=== PATIENT | male | born 1960 | race Two or more races ===

== ENCOUNTER 2020-02-02 09:40 | Inpatient (IN) | payer SELFPAY ==
[~2020-02-02] VITALS: Ht 162.6 cm; Wt 88.0 kg
[2020-02-02 10:10] VITALS: BP 142/79
[2020-02-02] MEDS ORDERED: GLIPIZIDE5 MG ORAL (10:27)
[2020-02-02] MEDS ORDERED: METFORMIN HCL850 M1 ORAL (10:27)
[2020-02-02] MEDS ORDERED: LISINOPRIL2.5 MG ORAL (10:27)
[2020-02-02] MEDS ORDERED: ACTOS45 MG ORAL (10:27)
--- NOTE | 2020-02-02 10:39 | Emergency Room Report ---
History of Present Illness General Chief Complaint: Dyspnea/Respdistress Source: Patient Present Illness HPI 59-year-old male presents to ED for evaluation. Coming from home. Noted to be short of breath with cough. O2 sats low in triage. States he has been feeling short of breath for 1 week. Feels better with oxygen. Denies chest pain. Denies fevers or chills. States that he has a Covid test pending yet from yesterday. No other aggravating relieving factors. Denies any other associated symptoms Allergies: Coded Allergies: No Known Allergies (Unverified , 02/02/20) COVID-19 Screening Contact w/high risk pt: No Experienced COVID-19 symptoms?: Yes COVID-19 Testing performed TANK PUMPER: No COVID-19 Screening: PUI COVID-19 COVID-19 Testing Source: CLIENT SERVICE CONSULTANT Patient History Past Medical History: DM Past Surgical History: none Pertinent Family History: none Social History: Denies: smoking, alcohol use, drug use Immunizations: UTD Reviewed Nursing Documentation: PMH: Agreed; PSxH: Agreed Nursing Documentation-PMH Past Medical History: No History, Except For Hx Diabetes: Yes Review of Systems All Other Systems: negative except mentioned in HPI Physical Exam Vital Signs Date Time Temp Pulse Resp B/P (MAP) Pulse Ox O2 Delivery O2 Flow Rate FiO2 02/02/20 09:53 97.9 112 33 135/79 (97) 71 Room Air 02/02/20 10:08 4.0 Sp02 EP Interpretation: reviewed, normal General Appearance: no apparent distress, alert, GCS 15, non-toxic Head: normocephalic, atraumatic Eyes: bilateral eye normal inspection, bilateral eye PERRL ENT: hearing grossly normal, normal pharynx, no angioedema, normal voice Neck: full range of motion, supple/symm/no masses Respiratory: chest non-tender, decreased breath sounds, speaking full sentences Cardiovascular #1: no edema, tachycardia Cardiovascular #2: 2+ carotid (R), 2+ carotid (L), 2+ radial (R), 2+ radial (L), 2+ dorsalis pedis (R), 2+ dorsalis pedis (L) Gastrointestinal: normal bowel sounds, non tender, soft, non-distended, no guarding, no rebound Rectal: deferred Genitourinary: normal inspection, no CVA tenderness Musculoskeletal: back normal, normal range of motion, gait/station normal, non- tender Neurologic: alert, motor strength/tone normal, oriented x3, sensory intact, responsive, speech normal Psychiatric: judgement/insight normal, memory normal, mood/affect normal, no suicidal/homicidal ideation Reflexes: 3+ bicep (R), 3+ bicep (L), 3+ tricep (R), 3+ tricep (L), 3+ knee (R), 3+ knee (L) Skin: other - See nursing notes Lymphatic: no adenopathy Procedures Critical Care Time Critical Care Time i. I feel this is a highly complex case requiring extensive working including EKG/Rhythm strip, Xray/CT/US, Blood/urine lab work, repeat exams while in ED, and administration of strong opiates/narcotics for pain control, admission to hospital or close patient follow up. Total time: 60 min bedside evaluation and treatment excludes procedures (EKG). Reason for critical care: Hypoxia, shortness of breath, Covid Possible complications: hypotension, hypertension, [place], shock, arrhythmias, metabolic acidosis, end organ damage, respiratory failure. Interventions: labs, EKG, chest x-ray, ABG, evaluation by respiratory therapist, Ventimask, Covid test, dexamethasone, Lovenox, antibiotics Course: Patient presenting with shortness of breath. O2 sats low. Chest x-ray shows patchy infiltrates. Concerning for Covid. In isolation. ABG shows mild hypoxia. Started on Ventimask. O2 sats and breathing improved. Given dexamethasone. Given Lovenox. Given broad-spectrum antibiotics Consultations: nursing staff, EMS, family Performed by: Dr Land Tolerated well condition = serious j. because of unstable vital signs this patient had a condition that could potentially threaten life or limb. I feel this is a critical patient who required my full attention while patient was considered critical. Total Critical Care Time excluding procedures was greater than 60 minutes Medical Decision Making Diagnostic Impression: Primary Impression: COVID-19 Additional Impression: Respiratory distress ER Course Hospital Course 59-year-old male presents with shortness of breath. Hypoxia. Concern for Covid. Differential diagnoses include: Pneumonia, CHF exacerbation, pneumothorax, fluid overload Clinical course Patient placed on stretcher. Isolation. I wore full PPE. On plumber cub with hypoxia on room air. After initial history and physical I ordered labs, EKG, chest x-ray, ABG. Patient started on nasal cannula. ABG shows mild hypoxia. No hypercapnia or acidosis. Started on Ventimask. Breathing improved. Chest x-ray shows bilateral patchy infiltrates highly consistent with Covid pneumonia Covid swab sent. Dexamethasone given. Lovenox given. Broad-spectrum antibiotics given. Respiratory status improved. Patient admitted to Dr. Alatorre. I feel this is a highly complex case requiring extensive working including EKG/Rhythm strip, Xray/CT/US, Blood/urine lab work, repeat exams while in ED, and administration of strong opiates/narcotics for pain control, admission to hospital or close patient follow up. Diagnosis -COVID-19, respiratory distress Patient admitted to telemetry in serious condition Laboratory Tests Test 02/02/20 10:28 02/02/20 10:32 02/02/20 10:50 Arterial Blood pH 7.470 (7.350-7.450) Arterial Blood Partial Pressure CO2 31.5 mmHg (35.0-45.0) L Arterial Blood Partial Pressure O2 61.8 mmHg (75.0-100.0) L Arterial Blood HCO3 22.4 mmol/L (22.0-26.0) Arterial Blood Oxygen Saturation 91.7 % (95-100) L Arterial Blood Base Excess -0.3 (-2-2) Oswaldo Test Positive White Blood Count 8.1 K/UL (4.8-10.8) Red Blood Count 4.49 M/UL (4.70-6.10) L Hemoglobin 14.9 G/DL (14.2-18.0) Hematocrit 44.9 % (42.0-52.0) Mean Corpuscular Volume 100 FL (80-99) H Mean Corpuscular Hemoglobin 33.1 PG (27.0-31.0) H Mean Corpuscular Hemoglobin Concent 33.1 G/DL (32.0-36.0) Red Cell Distribution Width 12.5 % (11.6-14.8) Platelet Count 325 K/UL (150-450) Mean Platelet Volume 5.7 FL (6.5-10.1) L Neutrophils (%) (Auto) 73.3 % (45.0-75.0) Lymphocytes (%) (Auto) 18.3 % (20.0-45.0) L Monocytes (%) (Auto) 7.0 % (1.0-10.0) Eosinophils (%) (Auto) 1.0 % (0.0-3.0) Basophils (%) (Auto) 0.4 % (0.0-2.0) Prothrombin Time 11.8 SEC (9.30-11.50) H Prothromb Time International Ratio 1.1 (0.9-1.1) Activated Partial Thromboplast Time 30 SEC (23-33) D-Dimer 0.73 mg/L FEU (0.00-0.49) H Sodium Level 133 MMOL/L (136-145) L Potassium Level 4.2 MMOL/L (3.5-5.1) Chloride Level 99 MMOL/L (98-107) Carbon Dioxide Level 26 MMOL/L (21-32) Anion Gap 8 mmol/L (5-15) Blood Urea Nitrogen 9 mg/dL (7-18) Creatinine 0.9 MG/DL (0.55-1.30) Estimat Glomerular Filtration Rate > 60 mL/min (>60) Glucose Level 212 MG/DL (74-106) H Lactic Acid Level 2.00 mmol/L (0.4-2.0) Calcium Level 8.4 MG/DL (8.5-10.1) L Ferritin 351 NG/ML (8-388) Total Bilirubin 0.6 MG/DL (0.2-1.0) Aspartate Amino Transf (AST/SGOT) 62 U/L (15-37) H Alanine Aminotransferase (ALT/SGPT) 56 U/L (12-78) Alkaline Phosphatase 42 U/L (46-116) L Lactate Dehydrogenase 559 U/L (81-234) H Troponin I 0.000 ng/mL (0.000-0.056) C-Reactive Protein, Quantitative 16.4 mg/dL (0.00-0.90) H Pro-B-Type Natriuretic Peptide 43 pg/mL (0-125) Total Protein 7.2 G/DL (6.4-8.2) Albumin 2.5 G/DL (3.4-5.0) L Globulin 4.7 g/dL Albumin/Globulin Ratio 0.5 (1.0-2.7) L Lipase 126 U/L (73-393) Urine Color Yellow Urine Appearance Clear Urine pH 7 (4.5-8.0) Urine Specific [place] 1.010 (1.005-1.035) Urine Protein 3+ (NEGATIVE) H Urine Glucose (UA) 4+ (NEGATIVE) H Urine Ketones 4+ (NEGATIVE) H Urine Blood 3+ (NEGATIVE) H Urine Nitrite Negative (NEGATIVE) Urine Bilirubin Negative (NEGATIVE) Urine Urobilinogen 8 MG/DL (0.0-1.0) H Urine Leukocyte Esterase Negative (NEGATIVE) Urine RBC 2-4 /HPF (0 - 0) H Urine WBC 0-2 /HPF (0 - 0) Urine Squamous Epithelial Cells Occasional /LPF Urine Bacteria Occasional /HPF (NONE) Urine Mucus Few /LPF (NONE/OCC) H EKG Diagnostic Results Troponin ordered: Yes Rate: tachycardiac Rhythm: NSR ST Segments: no acute changes ASA given to the pt in ED: No Rhythm Strip Diag. Results EP Interpretation: yes Rhythm: NSR, no PVC's, no ectopy Chest X-Ray Diagnostic Results Chest X-Ray Diagnostic Results : Chest X-Ray Ordered: Yes # of Views/Limited/Complete: 1 View Indication: Shortness of Breath EP Interpretation: Yes Interpretation: no pneumothorax, other - patchy bilateral infiltrates Impression: Other - Covid pneumonia Electronically Signed by: Electronically signed by Francesco Land MD Last Vital Signs Date Time Temp Pulse Resp B/P (MAP) Pulse Ox O2 Delivery O2 Flow Rate FiO2 02/02/20 10:10 114 29 142/79 95 Nasal Cannula 4.0 02/02/20 09:53 97.9 Status: improved Disposition: ADMITTED INPATIENT Condition: Serious Referrals: NOT CHOSEN IPA/,REFERRING (PCP) Francesco Land MD Feb 02, 2020 10:39
[2020-02-02 11:14] LABS: BASOPHILS % (AUTO) 0.4 % (0.0-2.0); HEMATOCRIT 44.9 % (42.0-52.0); HEMOGLOBIN 14.9 G/DL (14.2-18.0); LYMPHOCYTES % (AUTO) 18.3 % (20.0-45.0); MEAN CORPUSCULAR VOLUME 100 FL (80-99); NEUTROPHILS % (AUTO) 73.3 % (45.0-75.0); PLATELET COUNT 325 K/UL (150-450); RED BLOOD COUNT 4.49 M/UL (4.70-6.10); RED CELL DISTRIBUTION WIDTH 12.5 % (11.6-14.8); WHITE BLOOD COUNT 8.1 K/UL (4.8-10.8)
[2020-02-02 11:19] LABS: ANION GAP 8 mmol/L (5-15); BLOOD UREA NITROGEN 9 mg/dL (7-18); CALCIUM 8.4 MG/DL (8.5-10.1); CARBON DIOXIDE 26 MMOL/L (21-32); CHLORIDE 99 MMOL/L (98-107); CREATININE 0.9 MG/DL (0.55-1.30); POTASSIUM 4.2 MMOL/L (3.5-5.1); SODIUM 133 MMOL/L (136-145)
[2020-02-02 11:21] LABS: INR 1.1 (0.9-1.1)
[2020-02-02 11:29] LABS: APPEARANCE,URINE CLEAR; BILIRUBIN, URINE NEGATIVE (NEGATIVE); GLUCOSE, URINE (UA) 4+ (NEGATIVE); KETONES,URINE 4+ (NEGATIVE); LEUKOCYTE ESTERASE ,URINE NEGATIVE (NEGATIVE); NITRITE,URINE NEGATIVE (NEGATIVE); PH,URINE 7 (4.5-8.0); PROTEIN,URINE 3+ (NEGATIVE); UROBILINOGEN,URINE 8 MG/DL (0.0-1.0)
[2020-02-02 11:38] LABS: ALANINE AMINOTRANSFERASE 56 U/L (12-78); ALBUMIN 2.5 G/DL (3.4-5.0); ALBUMIN/GLOBULIN RATIO 0.5 (1.0-2.7); ALKALINE PHOSPHATASE 42 U/L (46-116); ASPARTATE AMINO TRANSFERASE 62 U/L (15-37); BILIRUBIN,TOTAL 0.6 MG/DL (0.2-1.0); FERRITIN 351 NG/ML (8-388); LACTATE DEHYDROGENASE 559 U/L (81-234)
[2020-02-02 11:41] LABS: COLOR,URINE YELLOW
[2020-02-02] MEDS ORDERED: Azithromycin 500 MG in NS 275 ML IV ONE (12:00)
[2020-02-02] MEDS ORDERED: dexAMETHasone 10mg/ml Inj IV ONE (12:00)
[2020-02-02] MEDS ORDERED: Enoxaparin 40mg Inj SUBQ ONE (12:00)
[2020-02-02] MEDS ORDERED: cefTRIAXone 1 GM in NS 55 ML IVPB ONE (12:00)
[2020-02-02 13:05] VITALS: BP 113/68
[2020-02-02 15:17] VITALS: BP 115/67
[2020-02-02] MEDS ORDERED: Miralax 17gm pkt ORAL PRN (15:30)
[2020-02-02] MEDS ORDERED: Morphine Sulfate 4mg/ml Inj (IV USE ONLY) IVP PRN (15:30)
[2020-02-02 16:00] VITALS: BP 142/76
--- NOTE | 2020-02-02 16:36 | Diagnostic Imaging Report ---
Indication: Shortness of breath Technique: One view of the chest Comparison: none Findings: There are bilateral mid and lower lung interstitial and airspace opacities in a peribronchovascular distribution. The heart is enlarged. The pleural spaces are grossly clear Impression: Bilateral mid and lower lung opacities. This is suspicious for bilateral pneumonia, possibly viral. Given the presence of cardiomegaly, findings could also represent pulmonary edema
--- NOTE | 2020-02-02 17:30 | History and Physical ---
History of Present Illness General Date patient seen: Feb 02, 2020 Time patient seen: 13:20 Reason for Hospitalization: Dyspnea/Respdistress Present Illness HPI 59 y/o M Pt brought in by family from home c/o SOB x4 days but today it got worse. Pt also c/o un productive cough x1 week. Denies fever/ chills. Pt is tachypneic and satting 71% RA upon arrival, placed on 4L nc, O2 improved to 95% per ER report. The Pt has a pending Covid result that was done at his PCP office yesterday due to intermittent cough. AAOx4, placed on Covid isolation precaution and CXR noted to have bilateral pneumonia. Antibiotics were started, dexamethasone 10 mg x1 , enoxaparin was given in the ER and admission is requested. Allergies: Coded Allergies: No Known Allergies (Unverified , 02/02/20) COVID-19 Screening Contact w/high risk pt: No Experienced COVID-19 symptoms?: Yes Coronavirus symptoms experienc: Fatigue, Shortness of Breath, Cough Medication History Scheduled Glipizide* (Glipizide*), 10 MG ORAL BIDAC, (Reported) Lisinopril* (Lisinopril*), 5 MG ORAL DAILY, (Reported) Metformin Hcl* (Metformin Hcl*), 850 MG ORAL TID, (Reported) Pioglitazone Hcl* (Actos*), 45 MG ORAL DAILY, (Reported) Patient History Healthcare decision maker Resuscitation status Advanced Directive on File Review of Systems All Other Systems: negative except mentioned in HPI Physical Exam General Appearance: WD/WN Lines, tubes and drains: peripheral HEENT: normocephalic Neck: non-tender Respiratory/Chest: decreased breath sounds Cardiovascular/Chest: normal rate Abdomen: non tender 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 Last 24 Hour Vital Signs Date Time Temp Pulse Resp B/P (MAP) Pulse Ox O2 Delivery O2 Flow Rate FiO2 02/02/20 16:00 102 02/02/20 16:00 97.9 105 25 142/76 (98) 94 02/02/20 15:53 Venturi Mask 15.0 02/02/20 15:30 97.9 99 33 115/67 97 Venturi Mask 4.0 55 02/02/20 15:17 97.9 99 33 115/67 97 Venturi Mask 4.0 55 02/02/20 13:05 97.9 101 28 113/68 99 Venturi Mask 55 02/02/20 10:10 114 29 142/79 95 Nasal Cannula 4.0 02/02/20 10:08 112 33 Nasal Cannula 4.0 02/02/20 09:53 97.9 112 33 135/79 (97) 71 Room Air Laboratory Tests Test 02/02/20 10:28 02/02/20 10:32 02/02/20 10:50 Arterial Blood pH 7.470 (7.350-7.450) Arterial Blood Partial Pressure CO2 31.5 mmHg (35.0-45.0) L Arterial Blood Partial Pressure O2 61.8 mmHg (75.0-100.0) L Arterial Blood HCO3 22.4 mmol/L (22.0-26.0) Arterial Blood Oxygen Saturation 91.7 % (95-100) L Arterial Blood Base Excess -0.3 (-2-2) Oswaldo Test Positive White Blood Count 8.1 K/UL (4.8-10.8) Red Blood Count 4.49 M/UL (4.70-6.10) L Hemoglobin 14.9 G/DL (14.2-18.0) Hematocrit 44.9 % (42.0-52.0) Mean Corpuscular Volume 100 FL (80-99) H Mean Corpuscular Hemoglobin 33.1 PG (27.0-31.0) H Mean Corpuscular Hemoglobin Concent 33.1 G/DL (32.0-36.0) Red Cell Distribution Width 12.5 % (11.6-14.8) Platelet Count 325 K/UL (150-450) Mean Platelet Volume 5.7 FL (6.5-10.1) L Neutrophils (%) (Auto) 73.3 % (45.0-75.0) Lymphocytes (%) (Auto) 18.3 % (20.0-45.0) L Monocytes (%) (Auto) 7.0 % (1.0-10.0) Eosinophils (%) (Auto) 1.0 % (0.0-3.0) Basophils (%) (Auto) 0.4 % (0.0-2.0) Prothrombin Time 11.8 SEC (9.30-11.50) H Prothromb Time International Ratio 1.1 (0.9-1.1) Activated Partial Thromboplast Time 30 SEC (23-33) D-Dimer 0.73 mg/L FEU (0.00-0.49) H Sodium Level 133 MMOL/L (136-145) L Potassium Level 4.2 MMOL/L (3.5-5.1) Chloride Level 99 MMOL/L (98-107) Carbon Dioxide Level 26 MMOL/L (21-32) Anion Gap 8 mmol/L (5-15) Blood Urea Nitrogen 9 mg/dL (7-18) Creatinine 0.9 MG/DL (0.55-1.30) Estimat Glomerular Filtration Rate > 60 mL/min (>60) Glucose Level 212 MG/DL (74-106) H Lactic Acid Level 2.00 mmol/L (0.4-2.0) Calcium Level 8.4 MG/DL (8.5-10.1) L Ferritin 351 NG/ML (8-388) Total Bilirubin 0.6 MG/DL (0.2-1.0) Aspartate Amino Transf (AST/SGOT) 62 U/L (15-37) H Alanine Aminotransferase (ALT/SGPT) 56 U/L (12-78) Alkaline Phosphatase 42 U/L (46-116) L Lactate Dehydrogenase 559 U/L (81-234) H Troponin I 0.000 ng/mL (0.000-0.056) C-Reactive Protein, Quantitative 16.4 mg/dL (0.00-0.90) H Pro-B-Type Natriuretic Peptide 43 pg/mL (0-125) Total Protein 7.2 G/DL (6.4-8.2) Albumin 2.5 G/DL (3.4-5.0) L Globulin 4.7 g/dL Albumin/Globulin Ratio 0.5 (1.0-2.7) L Lipase 126 U/L (73-393) Urine Color Yellow Urine Appearance Clear Urine pH 7 (4.5-8.0) Urine Specific [place] 1.010 (1.005-1.035) Urine Protein 3+ (NEGATIVE) H Urine Glucose (UA) 4+ (NEGATIVE) H Urine Ketones 4+ (NEGATIVE) H Urine Blood 3+ (NEGATIVE) H Urine Nitrite Negative (NEGATIVE) Urine Bilirubin Negative (NEGATIVE) Urine Urobilinogen 8 MG/DL (0.0-1.0) H Urine Leukocyte Esterase Negative (NEGATIVE) Urine RBC 2-4 /HPF (0 - 0) H Urine WBC 0-2 /HPF (0 - 0) Urine Squamous Epithelial Cells Occasional /LPF Urine Bacteria Occasional /HPF (NONE) Urine Mucus Few /LPF (NONE/OCC) H Height (Feet): 5 Height (Inches): 4.00 Weight (Pounds): 220 Medications Current Medications Medications (Trade) Dose Ordered Sig/Wisam Route PRN Reason Start Time Stop Time Status Last Admin Dose Admin Acetaminophen (Tylenol) 650 mg Q4H PRN ORAL Mild Pain (Pain Scale 1-3) 02/02/20 15:30 03/03/20 15:29 Acetaminophen (Tylenol) 650 mg Q4H PRN ORAL Temp >100.5 02/02/20 15:30 03/03/20 15:29 Azithromycin 250 mg/Dextrose 275 ml @ 275 mls/hr Q24HRS IV 02/03/20 12:00 02/08/20 11:59 Ceftriaxone Sodium 1 gm/ Dextrose 55 ml @ 110 mls/hr Q24H IVPB 02/03/20 13:00 02/10/20 12:59 Dexamethasone Sodium Phosphate (Decadron 10mg/ ml Inj) 6 mg DAILY IV 02/03/20 09:00 02/11/20 12:00 Dextrose (Dextrose 50%) 25 ml Q30M PRN IV Hypoglycemia 02/02/20 15:30 05/02/20 15:29 Dextrose (Dextrose 50%) 50 ml Q30M PRN IV Hypoglycemia 02/02/20 15:30 05/02/20 15:29 Diphenhydramine HCl (Benadryl) 25 mg Q6H PRN ORAL Itching/Pruritis 02/02/20 15:30 03/03/20 15:29 Docusate Sodium (Colace) 100 mg EVERY 12 HOURS ORAL 02/02/20 21:00 03/03/20 20:59 Enoxaparin Sodium (Lovenox) 40 mg Q24H SUBQ 02/03/20 09:00 05/03/20 08:59 Glipizide (Glucotrol) 10 mg ACBREAKFAST ORAL 02/03/20 06:30 03/04/20 06:29 Hydromorphone HCl (Dilaudid) 2 mg Q3H PRN IVP Severe Pain (Pain Scale 7-10) 02/02/20 15:30 02/09/20 15:29 Lisinopril (ZestriL) 5 mg DAILY ORAL 02/03/20 09:00 03/04/20 08:59 Morphine Sulfate (Morphine Sulfate) 4 mg Q3H PRN IVP Moderate Pain (Pain Scale 4-6) 02/02/20 15:30 02/09/20 15:29 Ondansetron HCl (Zofran) 4 mg Q6H PRN IVP Nausea & Vomiting 02/02/20 15:30 03/03/20 15:29 Pantoprazole (Protonix) 40 mg DAILY ORAL 02/03/20 09:00 03/04/20 08:59 Polyethylene Glycol (Miralax) 17 gm HSPRN PRN ORAL Constipation 02/02/20 15:30 03/03/20 15:29 Sodium Chloride 1,000 ml @ 75 mls/hr DAILY IV 02/02/20 16:00 03/03/20 15:59 02/02/20 16:00 Temazepam (Restoril) 15 mg HSPRN PRN ORAL Insomnia 02/02/20 15:30 02/09/20 15:29 Objective Narrative CXR with bilateral infiltrates Assessment/Plan Status: unchanged Assessment/Plan: 59 y.o admitted to the Hospital with # Hypoxemic respiratory failure ddx include pneumonia due to Sars-Co 2 ( covid 19 ) vs bacterial vs other High suspicion due to clinical presentation, hypoxia, improved with Oxygen support High Flow therapy at this time Empiric CTX, Azythromycin, Dexamethasone started in the ER Continue current therapy and dexamethasone at 6 mg daily ( 10 day course ) ID consulted, Dr. Steve Pulmonary consulted Dr. Gorman RT support Contact - droplet isolation # T2DM Resume home medication except Metformin which will be held for now Monitor BG and MANDIE # DVT ppx with LMWH # GI ppx with PPI FULL CODE Gonsalo Alatorre MD Feb 02, 2020 17:30
[2020-02-02 20:00] VITALS: BP 132/72
[2020-02-02] MEDS: Docusate 100mg cap ORAL SCH (21:20)
[2020-02-03] VITALS (14 sets, daily range): BP systolic 108–152; BP diastolic 54–86
[2020-02-03] MEDS: GlipiZIDE 5mg tab ORAL SCH (05:48)
[2020-02-03 07:04] LABS: ALANINE AMINOTRANSFERASE 46 U/L (12-78); ALBUMIN 2.2 G/DL (3.4-5.0); ALBUMIN/GLOBULIN RATIO 0.5 (1.0-2.7); ALKALINE PHOSPHATASE 39 U/L (46-116); ANION GAP 8 mmol/L (5-15); ASPARTATE AMINO TRANSFERASE 41 U/L (15-37); BILIRUBIN,TOTAL 0.5 MG/DL (0.2-1.0); BLOOD UREA NITROGEN 11 mg/dL (7-18); CALCIUM 8.3 MG/DL (8.5-10.1); CARBON DIOXIDE 23 MMOL/L (21-32); CHLORIDE 103 MMOL/L (98-107); CREATININE 0.9 MG/DL (0.55-1.30); POTASSIUM 4.4 MMOL/L (3.5-5.1); SODIUM 134 MMOL/L (136-145)
[2020-02-03 07:15] LABS: BASOPHILS % (AUTO) 0.2 % (0.0-2.0); HEMATOCRIT 38.8 % (42.0-52.0); HEMOGLOBIN 13.8 G/DL (14.2-18.0); MEAN CORPUSCULAR VOLUME 94 FL (80-99); MONOCYTES % (AUTO) 8.1 % (1.0-10.0); NEUTROPHILS % (AUTO) 76.6 % (45.0-75.0); PLATELET COUNT 404 K/UL (150-450); RED BLOOD COUNT 4.13 M/UL (4.70-6.10); WHITE BLOOD COUNT 8.7 K/UL (4.8-10.8)
--- NOTE | 2020-02-03 08:45 | Consultation ---
DATE OF CONSULTATION: 02/03/2020 PULMONARY CONSULTATION CONSULTING PHYSICIAN: Charles Gorman MD HISTORY OF PRESENT ILLNESS: This is a 59-year-old male who was brought in from home with shortness of breath. He reported chest congestion and cough for about a week. He was markedly hypoxic on arrival to the emergency room. He underwent rapid COVID testing yesterday, which was positive for COVID-19. Patient received Lovenox and Decadron. Currently, he is saturating 94% on 15 liters of oxygen. PAST MEDICAL HISTORY: Notable for diabetes mellitus and hypertension. HOME MEDICATIONS: Lisinopril, metformin, Actos, and glipizide. ALLERGIES: None reported. CODE STATUS: Full. SOCIAL HISTORY: No history of alcohol or tobacco usage. REVIEW OF SYSTEMS: Denies any headaches, hematemesis, melena, hematochezia, night sweats, or weight loss. PHYSICAL EXAMINATION: GENERAL: Reveals a 59-year-old male. HEENT: Unremarkable. LUNGS: Clear breath sounds bilaterally. ABDOMEN: Soft. EXTREMITIES: There is no edema. NEUROLOGIC: Nonfocal. VITAL SIGNS: Blood pressure is 140/80, heart rate 74, respirations 18, O2 saturation 93% on 15 liters Ventimask. LABORATORY DATA: Lab testing shows normal CBC. BMP notable for glucose 217, sodium 134. AST 41. ABG 7.47, pCO2 31, pO2 61. Coags normal. D-dimer is 0.73. IMAGING STUDIES: Discussed above. X-ray of the chest shows bilateral patchy infiltrates. IMPRESSION: 1. COVID-19 pneumonia. 2. Hypertension. 3. Diabetes mellitus. DISCUSSION: Admit to the hospital. Provide supplemental oxygen. Agree with Lovenox and Decadron. We will defer the use of remdesivir to ID specialist. We will follow carefully. Thank you for the consultation. Charles Gorman M.D. DR: MARI JOB#: [id number] CC:
[2020-02-03] MEDS: Lisinopril 2.5mg tab ORAL SCH (09:25)
[2020-02-03] MEDS: dexAMETHasone 10mg/ml Inj IV SCH (09:25)
[2020-02-03] MEDS: Enoxaparin 40mg Inj SUBQ SCH (09:26)
[2020-02-03] MEDS: Docusate 100mg cap ORAL SCH ×2 (09:26→21:00)
[2020-02-03] MEDS ORDERED: Loading Dose:Remdesivir 200mg/NS 210ml IV SCH ×4 (12:00→14:00)
--- NOTE | 2020-02-03 12:06 | General Progress Note ---
Subjective Date patient seen: Feb 03, 2020 Time patient seen: 09:00 ROS Limited/Unobtainable: No Allergies: Coded Allergies: No Known Allergies (Unverified , 02/02/20) All Systems: reviewed and negative except above Subjective Patient is comfortable and reports shortness of breath. Denies chest pain. No fever noted. Objective Last 24 Hour Vital Signs Date Time Temp Pulse Resp B/P (MAP) Pulse Ox O2 Delivery O2 Flow Rate FiO2 02/03/20 09:25 148/84 02/03/20 04:00 76 02/03/20 04:00 98.6 88 18 148/84 (105) 93 02/03/20 00:00 88 02/03/20 00:00 98.9 88 18 136/70 (92) 94 02/02/20 21:00 Venturi Mask 15.0 02/02/20 20:00 98.6 100 18 132/72 (92) 94 02/02/20 20:00 99 02/02/20 16:00 102 02/02/20 16:00 97.9 105 25 142/76 (98) 94 02/02/20 15:53 Venturi Mask 15.0 02/02/20 15:30 97.9 99 33 115/67 97 Venturi Mask 4.0 55 02/02/20 15:17 97.9 99 33 115/67 97 Venturi Mask 4.0 55 02/02/20 13:05 97.9 101 28 113/68 99 Venturi Mask 55 Intake and Output 02/02/20 02/03/20 19:00 07:00 Intake Total 340 ml 200 ml Output Total 750 ml Balance 340 ml -550 ml Intake Oral 340 ml 200 ml Output Urine Total 750 ml # Voids 2 Laboratory Tests 02/03/20 03:30: White Blood Count 8.7, Red Blood Count 4.13L, Hemoglobin 13.8L, Hematocrit 38.8L , Mean Corpuscular Volume 94, Mean Corpuscular Hemoglobin 33.3H, Mean Corpuscular Hemoglobin Concent 35.5, Red Cell Distribution Width 13.0, Platelet Count 404, Mean Platelet Volume 5.2L, Neutrophils (%) (Auto) 76.6H, Lymphocytes (%) (Auto) 15.0L, Monocytes (%) (Auto) 8.1, Eosinophils (%) (Auto) 0.0, Basophils (%) (Auto) 0.2, Sodium Level 134L, Potassium Level 4.4, Chloride Level 103, Carbon Dioxide Level 23, Anion Gap 8, Blood Urea Nitrogen 11, Creatinine 0.9, Estimat Glomerular Filtration Rate > 60, Glucose Level 217H, Hemoglobin A1c 6.8H, Calcium Level 8.3L, Magnesium Level 2.1, Total Bilirubin 0.5, Aspartate Amino Transf (AST/SGOT) 41H, Alanine Aminotransferase (ALT/SGPT) 46, Alkaline Phosphatase 39L, Total Protein 6.8, Albumin 2.2L, Globulin 4.6, Albumin/Globulin Ratio 0.5L Height (Feet): 5 Height (Inches): 4.00 Weight (Pounds): 220 General Appearance: WD/WN EENT: PERRL/EOMI Neck: non-tender Cardiovascular: normal rate, tachycardia Respiratory/Chest: decreased breath sounds Extremities: normal range of motion 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 monitor hypoxia, improved with Oxygen support High Flow therapy at this time - Venturi [address]iric CTX, Azythromycin, Dexamethasone started in the ER Continue current therapy and dexamethasone at 6 mg daily ( 10 day course ) ID consulted, Dr. Steve who kindly ordered the use of Remdisivir which is indicated based on risk factors and hypoxia. Pulmonary consulted kat [place]. RT support Contact - droplet isolation # T2DM Resume home medication except Metformin which will be held for now Monitor BG and MANDIE # DVT ppx with LMWH # GI ppx with PPI FULL CODE Gonsalo Alatorre MD Feb 03, 2020 12:06
[2020-02-03] MEDS: Azithromycin 250 MG in D5W 275 ML IV SCH (12:12)
[2020-02-03] MEDS: cefTRIAXone 1gm/D5W 55ml IVPB SCH ×2 (12:13)
--- NOTE | 2020-02-03 20:32 | Diagnostic Imaging Report ---
EXAM: CT Head Without Intravenous Contrast CLINICAL HISTORY: FALL TECHNIQUE: Axial computed tomography images of the head/brain without intravenous contrast. CTDI is 53.4 mGy and DLP is 1098.9 mGy-cm. One or more of the following dose reduction techniques were used: automated exposure control, adjustment of the mA and/or kV according to patient size, use of iterative reconstruction technique. COMPARISON: No relevant prior studies available. FINDINGS: Brain: No hemorrhage or mass effect. Ventricles: No hydrocephalus. Bones/joints: Unremarkable. Soft tissues: Unremarkable. Sinuses: Unremarkable. Mastoid air cells: Clear. IMPRESSION: No acute hemorrhage, hydrocephalus, or mass effect.
[2020-02-04] VITALS: BP 152/94
[2020-02-04 04:00] VITALS: BP 148/80
[2020-02-04 05:28] LABS: HEMATOCRIT 37.7 % (42.0-52.0); HEMOGLOBIN 13.9 G/DL (14.2-18.0); MEAN CORPUSCULAR VOLUME 92 FL (80-99); PLATELET COUNT 446 K/UL (150-450); RED BLOOD COUNT 4.08 M/UL (4.70-6.10); RED CELL DISTRIBUTION WIDTH 12.6 % (11.6-14.8); WHITE BLOOD COUNT 18.7 K/UL (4.8-10.8)
[2020-02-04] MEDS: GlipiZIDE 5mg tab ORAL SCH (05:39)
[2020-02-04 05:44] LABS: ALANINE AMINOTRANSFERASE 40 U/L (12-78); ALBUMIN 2.5 G/DL (3.4-5.0); ALBUMIN/GLOBULIN RATIO 0.6 (1.0-2.7); ALKALINE PHOSPHATASE 43 U/L (46-116); ANION GAP 11 mmol/L (5-15); ASPARTATE AMINO TRANSFERASE 39 U/L (15-37); BILIRUBIN,TOTAL 0.4 MG/DL (0.2-1.0); BLOOD UREA NITROGEN 11 mg/dL (7-18); CALCIUM 8.7 MG/DL (8.5-10.1); CARBON DIOXIDE 24 MMOL/L (21-32); CHLORIDE 103 MMOL/L (98-107); CREATININE 0.9 MG/DL (0.55-1.30); POTASSIUM 3.9 MMOL/L (3.5-5.1); SODIUM 138 MMOL/L (136-145)
[2020-02-04 08:00] VITALS: BP 148/80
[2020-02-04] MEDS: dexAMETHasone 10mg/ml Inj IV SCH (09:01)
[2020-02-04] MEDS: Lisinopril 2.5mg tab ORAL SCH (09:01)
[2020-02-04] MEDS: Docusate 100mg cap ORAL SCH (09:01)
[2020-02-04] MEDS: Enoxaparin 40mg Inj SUBQ SCH (09:02)
[2020-02-04] MEDS ORDERED: D5 1/2NS 1,000 ML IV SCH (11:45)
[2020-02-04] MEDS ORDERED: Omnipaque 350 100ml vial INJ PRN ×2 (11:45)
--- NOTE | 2020-02-04 11:46 | General Progress Note ---
Subjective Date patient seen: Feb 04, 2020 Time patient seen: 11:15 ROS Limited/Unobtainable: Yes Respiratory: Reports: shortness of breath Neurologic/Psychiatric: Reports: weakness, other - hemiplegia in the L UE and L LE noted Endocrine: Reports: no symptoms Hematologic/Lymphatic: Reports: no symptoms Allergies: Coded Allergies: No Known Allergies (Unverified , 02/02/20) All Systems: reviewed and negative except above Subjective Patient is anxious and reports shortness of breath is stable. Today he was noted NOT TO BE ABLE TO MOVE his LUE and LLE. Initially this happened at 1900 01/[address] head was done with NEGATIVE findings for stroke or hemorrage. He was then noted to be able to move his L side extremities until this morning 9:30 AM when he also was noted not to be able to swallow correctly. Denies chest pain. No fever noted. Objective Last 24 Hour Vital Signs Date Time Temp Pulse Resp B/P (MAP) Pulse Ox O2 Delivery O2 Flow Rate FiO2 02/04/20 09:01 148/80 02/04/20 08:00 95 02/04/20 08:00 97.7 98 22 148/80 (102) 96 02/04/20 07:38 Non-Rebreather 10.0 02/04/20 04:00 98 02/04/20 04:00 97.7 98 22 148/80 (102) 96 02/04/20 00:00 97.7 109 22 152/94 (113) 94 02/04/20 00:00 95 02/03/20 23:11 110 20 92 02/03/20 23:09 110 20 92 02/03/20 22:11 98.5 94 02/03/20 21:11 98.2 94 02/03/20 21:00 Non-Rebreather 10.0 02/03/20 20:41 97.9 92 02/03/20 20:11 98.1 96 02/03/20 20:00 109 02/03/20 20:00 97.5 102 22 108/54 (72) 97 02/03/20 19:45 97.8 97 02/03/20 19:30 Venturi Mask 15.0 02/03/20 19:30 97.9 94 02/03/20 16:00 98.0 103 20 141/76 (97) 94 02/03/20 16:00 90 02/03/20 12:00 87 02/03/20 12:00 98.4 84 18 135/71 (92) 94 Intake and Output0 02/03/20 02/04/20 18:59 06:59 Intake Total 360 ml Output Total 400 ml Balance -40 ml Intake Oral 360 ml Output Urine Total 400 ml # Voids 2 Laboratory Tests 02/04/20 04:00: White Blood Count 18.7#H, Red Blood Count 4.08L, Hemoglobin 13.9L, Hematocrit 37.7L, Mean Corpuscular Volume 92, Mean Corpuscular Hemoglobin 34.0H, Mean Corpuscular Hemoglobin Concent 36.7H, Red Cell Distribution Width 12.6, Platelet Count 446, Mean Platelet Volume 5.0L, Neutrophils (%) (Auto) , Lymphocytes (%) (Auto) , Monocytes (%) (Auto) , Eosinophils (%) (Auto) , Basophils (%) (Auto) , Differential Total Cells Counted 100, Neutrophils % (Manual) 80H, Lymphocytes % (Manual) 12L, Monocytes % (Manual) 8, Eosinophils % (Manual) 0, Basophils % (Manual) 0, Band Neutrophils 0, Platelet Estimate IncreasedH, Platelet Morphology Normal, Red Blood Cell Morphology Normal, Sodium Level 138, Potassium Level 3.9, Chloride Level 103, Carbon Dioxide Level 24, Anion Gap 11, Blood Urea Nitrogen 11, Creatinine 0.9, Estimat Glomerular Filtration Rate > 60, Glucose Level 195H, Calcium Level 8.7, Total Bilirubin 0.4, Direct Bilirubin 0.2, Aspartate Amino Transf (AST/SGOT) 39H, Alanine Aminotransferase (ALT/SGPT) 40, Alkaline Phosphatase 43L, Total Protein 7.0, Albumin 2.5L, Globulin 4.5, Albumin/Globulin Ratio 0.6L Height (Feet): 5 Height (Inches): 4.00 Weight (Pounds): 220 General Appearance: moderate distress EENT: PERRL/EOMI Neck: non-tender Cardiovascular: normal rate Respiratory/Chest: decreased breath sounds Extremities: normal inspection Neurologic: alert, oriented x 3, normal mood/affect, motor weakness, other - LUE and LLE without movement during my exam 0/5 Objective Co- Sars 2 POSITIVE Assessment/Plan Status: unchanged Assessment/Plan: 59 y.o admitted to the Hospital with # Hypoxemic respiratory failure due to pneumonia due to Sars-Co 2 ( covid 19 ) based on positive test. monitor hypoxia, improved with Oxygen support High Flow therapy at this time - Venturi [address] Empiric CTX, Azythromycin, Dexamethasone started in the ER Continue current therapy and dexamethasone at 6 mg daily ( 10 day course ) ID consulted, Dr. Steve who kindly ordered the use of Remdisivir which is indicated based on risk factors and hypoxia. Dr. Alfred from ID will follow up today and case discussed with him. Pulmonary consulted Dr. Gorman, kat. RT support Contact - droplet isolation # NEW Left UE and LE hemiplegia noted this morning. Consulted Dr. Perez and MRI brain is scheduled for last case of the day due to Covid positive status STAT CTA head and neck ordered to rule out large vessel occlusion. If positive the patient will need higher level of care for possible thrombectomy rescue. MARCO A Villeda updated. # Dysphagia Place NPO and ST evaluation ordered # T2DM HOLD ORAL medications and use MANDIE for now Monitor BG and MANDIE # DVT ppx with LMWH # GI ppx with PPI FULL CODE Gonsalo Alatorre MD Feb 04, 2020 11:46
[2020-02-04 12:00] VITALS: BP 118/56
[2020-02-04] MEDS: Azithromycin 250 MG in D5W 275 ML IV SCH (12:00)
--- NOTE | 2020-02-04 12:08 | Infectious Diseases Prog Note ---
Subjective Allergies: Coded Allergies: No Known Allergies (Unverified , 02/02/20) # [id number] Objective Last 24 Hour Vital Signs Date Time Temp Pulse Resp B/P (MAP) Pulse Ox O2 Delivery O2 Flow Rate FiO2 02/04/20 09:01 148/80 02/04/20 08:00 95 02/04/20 08:00 97.7 98 22 148/80 (102) 96 02/04/20 07:38 Non-Rebreather 10.0 02/04/20 04:00 98 02/04/20 04:00 97.7 98 22 148/80 (102) 96 02/04/20 00:00 97.7 109 22 152/94 (113) 94 02/04/20 00:00 95 02/03/20 23:11 110 20 92 02/03/20 23:09 110 20 92 02/03/20 22:11 98.5 94 02/03/20 21:11 98.2 94 02/03/20 21:00 Non-Rebreather 10.0 02/03/20 20:41 97.9 92 02/03/20 20:11 98.1 96 02/03/20 20:00 109 02/03/20 20:00 97.5 102 22 108/54 (72) 97 02/03/20 19:45 97.8 97 02/03/20 19:30 Venturi Mask 15.0 02/03/20 19:30 97.9 94 02/03/20 16:00 98.0 103 20 141/76 (97) 94 02/03/20 16:00 90 Height (Feet): 5 Height (Inches): 4.00 Weight (Pounds): 220 Microbiology Date/Time Source Procedure Growth Status 02/02/20 21:50 Nasopharynx SARS-CoV-2 RdRp Gene Assay - Final Complete 02/02/20 10:19 Nasopharynx Coronavirus COVID-19 PCR (DARSHANA) - Final Complete 02/02/20 10:15 Blood Blood Culture - Preliminary NO GROWTH AFTER 24 HOURS Resulted 02/02/20 10:15 Blood Blood Culture - Preliminary NO GROWTH AFTER 24 HOURS Resulted Laboratory Tests Test 02/04/20 04:00 White Blood Count 18.7 K/UL (4.8-10.8) #H Red Blood Count 4.08 M/UL (4.70-6.10) L Hemoglobin 13.9 G/DL (14.2-18.0) L Hematocrit 37.7 % (42.0-52.0) L Mean Corpuscular Volume 92 FL (80-99) Mean Corpuscular Hemoglobin 34.0 PG (27.0-31.0) H Mean Corpuscular Hemoglobin Concent 36.7 G/DL (32.0-36.0) H Red Cell Distribution Width 12.6 % (11.6-14.8) Platelet Count 446 K/UL (150-450) Mean Platelet Volume 5.0 FL (6.5-10.1) L Neutrophils (%) (Auto) % (45.0-75.0) Lymphocytes (%) (Auto) % (20.0-45.0) Monocytes (%) (Auto) % (1.0-10.0) Eosinophils (%) (Auto) % (0.0-3.0) Basophils (%) (Auto) % (0.0-2.0) Differential Total Cells Counted 100 Neutrophils % (Manual) 80 % (45-75) H Lymphocytes % (Manual) 12 % (20-45) L Monocytes % (Manual) 8 % (1-10) Eosinophils % (Manual) 0 % (0-3) Basophils % (Manual) 0 % (0-2) Band Neutrophils 0 % (0-8) Platelet Estimate Increased H Platelet Morphology Normal Red Blood Cell Morphology Normal Sodium Level 138 MMOL/L (136-145) Potassium Level 3.9 MMOL/L (3.5-5.1) Chloride Level 103 MMOL/L (98-107) Carbon Dioxide Level 24 MMOL/L (21-32) Anion Gap 11 mmol/L (5-15) Blood Urea Nitrogen 11 mg/dL (7-18) Creatinine 0.9 MG/DL (0.55-1.30) Estimat Glomerular Filtration Rate > 60 mL/min (>60) Glucose Level 195 MG/DL (74-106) H Hemoglobin A1c Pending Calcium Level 8.7 MG/DL (8.5-10.1) Total Bilirubin 0.4 MG/DL (0.2-1.0) Direct Bilirubin 0.2 MG/DL (0.0-0.3) Aspartate Amino Transf (AST/SGOT) 39 U/L (15-37) H Alanine Aminotransferase (ALT/SGPT) 40 U/L (12-78) Alkaline Phosphatase 43 U/L (46-116) L Total Protein 7.0 G/DL (6.4-8.2) Albumin 2.5 G/DL (3.4-5.0) L Globulin 4.5 g/dL Albumin/Globulin Ratio 0.6 (1.0-2.7) L Current Medications Medications (Trade) Dose Ordered Sig/Wisam Route PRN Reason Start Time Stop Time Status Last Admin Dose Admin Acetaminophen (Tylenol) 650 mg Q4H PRN ORAL Mild Pain (Pain Scale 1-3) 02/02/20 15:30 03/03/20 15:29 Acetaminophen (Tylenol) 650 mg Q4H PRN ORAL Temp >100.5 02/02/20 15:30 03/03/20 15:29 Aspirin (ASA) 325 mg DAILY ORAL 02/04/20 11:45 03/20/20 11:44 Azithromycin 250 mg/Dextrose 275 ml @ 275 mls/hr Q24HRS IV 02/03/20 12:00 02/08/20 11:59 02/03/20 12:12 Ceftriaxone Sodium 1 gm/ Dextrose 55 ml @ 110 mls/hr Q24H IVPB 02/03/20 13:00 02/10/20 12:59 02/03/20 12:13 Dexamethasone Sodium Phosphate (Decadron 10mg/ ml Inj) 6 mg DAILY IV 02/03/20 09:00 02/11/20 12:00 02/04/20 09:01 Dextrose (Dextrose 50%) 25 ml Q30M PRN IV Hypoglycemia 02/02/20 15:30 05/02/20 15:29 Dextrose (Dextrose 50%) 50 ml Q30M PRN IV Hypoglycemia 02/02/20 15:30 05/02/20 15:29 Dextrose/Sodium Chloride 1,000 ml @ 75 mls/hr [id number] IV 02/04/20 11:45 03/05/20 11:44 Diphenhydramine HCl (Benadryl) 25 mg Q6H PRN ORAL Itching/Pruritis 02/02/20 15:30 03/03/20 15:29 Docusate Sodium (Colace) 100 mg EVERY 12 HOURS ORAL 02/02/20 21:00 03/03/20 20:59 02/04/20 09:01 Enoxaparin Sodium (Lovenox) 40 mg Q24H SUBQ 02/03/20 09:00 05/03/20 08:59 02/04/20 09:02 Hydromorphone HCl (Dilaudid) 2 mg Q3H PRN IVP Severe Pain (Pain Scale 7-10) 02/02/20 15:30 02/09/20 15:29 Insulin Aspart (NovoLOG) BEFORE MEALS AND HS SUBQ 02/04/20 16:30 05/04/20 16:29 Iohexol (Omnipaque 350 100ml) 100 ml NOW PRN INJ Radiology Procedure 02/04/20 11:45 02/06/20 11:44 Iohexol (Omnipaque 350 100ml) 100 ml NOW PRN INJ Radiology Procedure 02/04/20 11:45 02/06/20 11:44 Lisinopril (ZestriL) 5 mg DAILY ORAL 02/03/20 09:00 03/04/20 08:59 02/04/20 09:01 Morphine Sulfate (Morphine Sulfate) 4 mg Q3H PRN IVP Moderate Pain (Pain Scale 4-6) 02/02/20 15:30 02/09/20 15:29 Ondansetron HCl (Zofran) 4 mg Q6H PRN IVP Nausea & Vomiting 02/02/20 15:30 03/03/20 15:29 Pantoprazole (Protonix) 40 mg DAILY ORAL 02/03/20 09:00 03/04/20 08:59 02/04/20 09:01 Polyethylene Glycol (Miralax) 17 gm HSPRN PRN ORAL Constipation 02/02/20 15:30 03/03/20 15:29 Remdesivir 100 mg/ Sodium Chloride 250 ml @ 250 mls/hr Q24H IV 02/04/20 14:00 02/07/20 14:59 Sodium Chloride 1,000 ml @ 75 mls/hr DAILY IV 02/02/20 16:00 03/03/20 15:59 02/04/20 09:01 Temazepam (Restoril) 15 mg HSPRN PRN ORAL Insomnia 02/02/20 15:30 02/09/20 15:29 Roney Alfred MD Feb 04, 2020 12:08
[2020-02-04] MEDS: cefTRIAXone 1gm/D5W 55ml IVPB SCH ×2 (12:44)
--- NOTE | 2020-02-04 13:20 | Pulmonology Progress Note ---
Subjective ROS Limited/Unobtainable: Yes HEENT: Repors: no symptoms, visual change, discharge, earache, hearing change, coryza, congestion, post-nasal drip, dysphagia, other Genitourinary: Reports: no symptoms, dysuria, hematuria, frequency, nocturia, urgency, other Neurologic: Reports: headache Allergies: Coded Allergies: No Known Allergies (Unverified , 02/02/20) All Systems: reviewed and negative except above Objective Last 24 Hour Vital Signs Date Time Temp Pulse Resp B/P (MAP) Pulse Ox O2 Delivery O2 Flow Rate FiO2 02/04/20 09:01 148/80 02/04/20 08:00 95 02/04/20 08:00 97.7 98 22 148/80 (102) 96 02/04/20 07:38 Non-Rebreather 10.0 02/04/20 04:00 98 02/04/20 04:00 97.7 98 22 148/80 (102) 96 02/04/20 00:00 97.7 109 22 152/94 (113) 94 02/04/20 00:00 95 02/03/20 23:11 110 20 92 02/03/20 23:09 110 20 92 02/03/20 22:11 98.5 94 02/03/20 21:11 98.2 94 02/03/20 21:00 Non-Rebreather 10.0 02/03/20 20:41 97.9 92 02/03/20 20:11 98.1 96 02/03/20 20:00 109 02/03/20 20:00 97.5 102 22 108/54 (72) 97 02/03/20 19:45 97.8 97 02/03/20 19:30 Venturi Mask 15.0 02/03/20 19:30 97.9 94 02/03/20 16:00 98.0 103 20 141/76 (97) 94 02/03/20 16:00 90 Intake and Output 02/03/20 02/04/20 19:00 07:00 Intake Total 360 ml Output Total 400 ml Balance -40 ml Intake Oral 360 ml Output Urine Total 400 ml # Voids 2 General Appearance: other Respiratory: decreased breath sounds Cardiovascular: tachycardia Abdomen: distended Neurologic: motor weakness, disoriented Microbiology Date/Time Source Procedure Growth Status 02/02/20 21:50 Nasopharynx SARS-CoV-2 RdRp Gene Assay - Final Complete 02/02/20 10:19 Nasopharynx Coronavirus COVID-19 PCR (DARSHANA) - Final Complete 02/02/20 10:15 Blood Blood Culture - Preliminary NO GROWTH AFTER 24 HOURS Resulted 02/02/20 10:15 Blood Blood Culture - Preliminary NO GROWTH AFTER 24 HOURS Resulted Laboratory Tests 02/04/20 04:00: White Blood Count 18.7#H, Red Blood Count 4.08L, Hemoglobin 13.9L, Hematocrit 37.7L, Mean Corpuscular Volume 92, Mean Corpuscular Hemoglobin 34.0H, Mean Corpuscular Hemoglobin Concent 36.7H, Red Cell Distribution Width 12.6, Platelet Count 446, Mean Platelet Volume 5.0L, Neutrophils (%) (Auto) , Lymphocytes (%) (Auto) , Monocytes (%) (Auto) , Eosinophils (%) (Auto) , Basophils (%) (Auto) , Differential Total Cells Counted 100, Neutrophils % (Manual) 80H, Lymphocytes % (Manual) 12L, Monocytes % (Manual) 8, Eosinophils % (Manual) 0, Basophils % (Manual) 0, Band Neutrophils 0, Platelet Estimate IncreasedH, Platelet Morpholog y Normal, Red Blood Cell Morphology Normal, Sodium Level 138, Potassium Level 3.9, Chloride Level 103, Carbon Dioxide Level 24, Anion Gap 11, Blood Urea Nitrogen 11, Creatinine 0.9, Estimat Glomerular Filtration Rate > 60, Glucose Level 195H, Hemoglobin A1c 6.9H, Calcium Level 8.7, Total Bilirubin 0.4, Direct Bilirubin 0.2, Aspartate Amino Transf (AST/SGOT) 39H, Alanine Aminotransferase (ALT/SGPT) 40, Alkaline Phosphatase 43L, Total Protein 7.0, Albumin 2.5L, Globulin 4.5, Albumin/Globulin Ratio 0.6L Current Medications Medications (Trade) Dose Ordered Sig/Wisam Route PRN Reason Start Time Stop Time Status Last Admin Dose Admin Acetaminophen (Tylenol) 650 mg Q4H PRN ORAL Mild Pain (Pain Scale 1-3) 02/02/20 15:30 03/03/20 15:29 Acetaminophen (Tylenol) 650 mg Q4H PRN ORAL Temp >100.5 02/02/20 15:30 03/03/20 15:29 Aspirin (ASA) 325 mg DAILY ORAL 02/04/20 11:45 03/20/20 11:44 02/04/20 11:45 Azithromycin 250 mg/Dextrose 275 ml @ 275 mls/hr Q24HRS IV 02/03/20 12:00 02/08/20 11:59 02/04/20 12:00 Ceftriaxone Sodium 1 gm/ Dextrose 55 ml @ 110 mls/hr Q24H IVPB 02/03/20 13:00 02/10/20 12:59 02/04/20 12:44 Dexamethasone Sodium Phosphate (Decadron 10mg/ ml Inj) 6 mg DAILY IV 02/03/20 09:00 02/11/20 12:00 02/04/20 09:01 Dextrose (Dextrose 50%) 25 ml Q30M PRN IV Hypoglycemia 02/02/20 15:30 05/02/20 15:29 Dextrose (Dextrose 50%) 50 ml Q30M PRN IV Hypoglycemia 02/02/20 15:30 05/02/20 15:29 Dextrose/Sodium Chloride 1,000 ml @ 75 mls/hr [id number] IV 02/04/20 11:45 03/05/20 11:44 02/04/20 11:45 Diphenhydramine HCl (Benadryl) 25 mg Q6H PRN ORAL Itching/Pruritis 02/02/20 15:30 03/03/20 15:29 Docusate Sodium (Colace) 100 mg EVERY 12 HOURS ORAL 02/02/20 21:00 03/03/20 20:59 02/04/20 09:01 Enoxaparin Sodium (Lovenox) 40 mg Q24H SUBQ 02/03/20 09:00 05/03/20 08:59 02/04/20 09:02 Hydromorphone HCl (Dilaudid) 2 mg Q3H PRN IVP Severe Pain (Pain Scale 7-10) 02/02/20 15:30 02/09/20 15:29 Insulin Aspart (NovoLOG) BEFORE MEALS AND HS SUBQ 02/04/20 16:30 05/04/20 16:29 Iohexol (Omnipaque 350 100ml) 100 ml NOW PRN INJ Radiology Procedure 02/04/20 11:45 02/06/20 11:44 Iohexol (Omnipaque 350 100ml) 100 ml NOW PRN INJ Radiology Procedure 02/04/20 11:45 02/06/20 11:44 Lisinopril (ZestriL) 5 mg DAILY ORAL 02/03/20 09:00 03/04/20 08:59 02/04/20 09:01 Morphine Sulfate (Morphine Sulfate) 4 mg Q3H PRN IVP Moderate Pain (Pain Scale 4-6) 02/02/20 15:30 02/09/20 15:29 Ondansetron HCl (Zofran) 4 mg Q6H PRN IVP Nausea & Vomiting 02/02/20 15:30 03/03/20 15:29 Pantoprazole (Protonix) 40 mg DAILY ORAL 02/03/20 09:00 03/04/20 08:59 02/04/20 09:01 Polyethylene Glycol (Miralax) 17 gm HSPRN PRN ORAL Constipation 02/02/20 15:30 03/03/20 15:29 Remdesivir 100 mg/ Sodium Chloride 250 ml @ 250 mls/hr Q24H IV 02/04/20 14:00 02/07/20 14:59 Sodium Chloride 1,000 ml @ 75 mls/hr DAILY IV 02/02/20 16:00 03/03/20 15:59 02/04/20 09:01 Temazepam (Restoril) 15 mg HSPRN PRN ORAL Insomnia 02/02/20 15:30 02/09/20 15:29 Assessment/Plan Problems: (1) Respiratory distress (2) COVID-19 Assessment/Plan MPRESSION: 1. COVID-19 pneumonia. 2. Hypertension. 3. Diabetes mellitus. 4. S/P Fall, change mental status 5. left sided Weakness DISCUSSION: Provide supplemental oxygen. Agree with Lovenox and Decadron. We will defer the use of remdesivir to ID specialist. We will follow carefully. Patient will go for CT Scan with contras, due to change of mental status, and c/p left sided weakness Follow up with PCP Above plan was discussed with supervising physician Jose Angel Freeman [employer]IEF OF [employer]PERATIONS Feb 04, 2020 13:20
[2020-02-04] MEDS ORDERED: Maintenance Dose:Remdesivir 100mg/NS 230ml x 4 Doses IV SCH ×2 (14:00)
--- NOTE | 2020-02-04 15:01 | Discharge Instructions ---
Discharge Instructions Discharge Instructions Follow up with: [facility] Neuro ICU Diet: NPO Resume Normal Activity?: No Special Instructions Higher level of care Neuro ICU needed due to CVA For Congestive Heart Failure Reminder Report to your physician any weight gain of 5 pounds or more in one week. Gonsalo Alatorre MD Feb 04, 2020 15:00
--- NOTE | 2020-02-04 15:15 | Consultation ---
DATE OF CONSULTATION: 02/04/2020 REFERRING PHYSICIAN: Gonsalo Alatorre M.D. REASON FOR CONSULTATION: Evaluation of the patient for COVID pneumonia, antibiotic management. HISTORY OF PRESENT ILLNESS: The patient is a 59-year-old male with multiple medical problems as listed below including diabetes, who was admitted to this medical center with shortness of breath. The patient has slurred speech and it is difficult to obtain detailed information. However, the patient apparently developed symptoms of cough that is productive about a weak ago. Subsequently, the patient's symptoms worsened and developed shortness of breath. The patient was admitted to this medical center and as of yesterday the patient developed left-sided weakness, slurred speech, and neurology consultation has been requested. The patient has been started on nonrebreather facemask and was started on remdesivir and steroids. Infectious disease consultation has been requested for further evaluation of the patient and antibiotic management. The patient's COVID test during the hospitalization was positive. PAST MEDICAL HISTORY: Diabetes. ALLERGIES: No known drug allergies. SOCIAL HISTORY: No history of drug abuse. FAMILY HISTORY: Positive for COVID. REVIEW OF SYSTEMS: A 10-point review of systems was done and except what was mentioned above has been negative. MEDICATIONS: The patient is on remdesivir, Rocephin, Zithromax, dexamethasone. PHYSICAL EXAMINATION: VITAL SIGNS: Temperature 97.7, blood pressure 152/94, pulse 95, respiratory rate 22. HEENT: No pale conjunctivae. No icterus. NECK: No JVD. CHEST: Bilateral expansion. ABDOMEN: Not distended. EXTREMITIES: No cyanosis at this time. NEUROLOGIC: The patient has slurred speech. Has left-sided weakness. Alert and oriented. LABORATORY DATA: White blood cells 18.7, hemoglobin 13.9, platelets 446. UA unremarkable. BUN 11, creatinine 0.9. ALT, AST, and alk phos overall unremarkable or mildly elevated. Rapid screening test and conformity PCR are both positive for COVID. Blood culture is pending. Chest x-ray, bilateral mid and lower lung opacities, suspicious of bilateral infiltrates. Head CT unremarkable. MRI of the brain pending. ASSESSMENT: The patient is a 59-year-old male with: 1. Leukocytosis (due to the steroid). 2. COVID pneumonia. 3. Left-sided weakness, rule out CVA. 4. History of diabetes. PLAN: 1. I agreed with continuing Zithromax, Rocephin, remdesivir, day #2. 2. Continue steroids, day #04/19. 3. Monitor CBC. 4. Monitor BMP. 5. Monitor chest x-ray. 6. Monitor the patient's oxygenation. 7. MRI of the brain. 8. Neurology consult pending. 9. Based on the patient's clinical course and labs, we will do further recommendations. Roney Alfred M.D. DR: MIAN JOB#: [id number] CC:
--- NOTE | 2020-02-04 15:25 | Discharge Summary ---
Discharge Summary Hospital Course Date of Admission Feb 02, 2020 at 10:56 Date of Discharge 02/04/2020 Admitting Diagnosis COVID 19 HYPOXEMIC RESPIRATORY FAILURE HPI Mickey Mcnulty is a 59 year old male who was admitted on Feb 02, 2020 at 10:56 for Shortness Of Breath/Patient Under Investigation Consultations Pulmonary Neurology ID Hospital Course 59 y.o admitted to the Hospital with # Hypoxemic respiratory failure due to pneumonia due to Sars-Co 2 ( covid 19 ) based on positive test. His hypoxia improved with Oxygen support High Flow therapy at this time - Venturi [address] Empiric CTX, Azythromycin, Dexamethasone started in the ER and continued. Dexamethasone at 6 mg daily ( 10 day course ) was started since admission and c ontinued. ID consulted, Dr. Steve who kindly ordered the use of Remdisivir which is indicated based on risk factors and hypoxia. First dose 02/02 Dr. Alfred from ID evaluated today and continued current medical regimen. Pulmonary consulted Dr. Gorman, appreciated and no recommendations noted. RT support Contact - droplet isolation # NEW Left UE and LE hemiplegia noted this morning. 02/[address] Perez and MRI brain is scheduled for last case of the day due to Covid positive status not until 3 pm, therefore a STAT CTA head and neck ordered to rule out large vessel occlusion. I reviewed the images with radiologist Dr. Arana and there was evidence of a large multivessel stroke, possibly thormboembolic in nature, imvolving the R PEDRO, R MCA and L DIRECTOR INPATIENT HEADACHE PROGRAM. I called [facility] and spoke with Dr. Montes who agreed on the need for higher level of care, NEURO ICU TEAM as this large stroke has a high risk for cerebral edema and herniation. Dr. Perez was updated and Mannitol is recommended, however the patient is NOT IN ICU. Due to the emergent need for transfer and stable hemodynamics, the patient will be transferred to [facility] today. Family members were updated by me and questions answered to my best capacity. MARCO A Villeda updated. # Dysphagia Place NPO and ST evaluation will be needed. # T2DM HOLD ORAL medications and use MANDIE for now Monitor BG and MANDIE # DVT ppx with LMWH # GI ppx with PPI FULL CODE Discharge Medications New Medications: Azithromycin (Azithromycin) 500 Mg Vial 500 MG IVPB Q24H for 7 Days, #7 VIAL 0 Refills NS Ceftriaxone Na/Dextrose,Iso (Ceftriaxone 1 Gm Piggyback) 1 Gm/50 Ml Froz.piggy 1 GM IV DAILY for 7 Days, #7 BAG 7 Refills Enoxaparin* (Lovenox*) 40 Mg/0.4 Ml Inj 40 MG SUBQ Q24H for 7 Days, #7 EA Insulin Aspart (Novolog Flexpen) 100 Unit/1 Ml Insuln.pen 0 UNITS SUBQ BEFORE MEALS AND HS for 7 Days, #7 EA Pantoprazole* (Pantoprazole*) 40 Mg Tablet.dr 40 MG ORAL DAILY for 7 Days, #7 TAB Potassium Chloride/D5-0.45NACL (D5%-1/2NS-Kcl 10 Meq/L Iv Mya) 10 Meq/1000 Ml Iv.soln 10 MEQ IV ONCE for 1 Day, #1 BAG Remdesivir (Investigational) (Remdesivir) 100 Mg/20 Ml Vial 100 MG IV DAILY for 5 Days, #5 VIAL Discontinued Medications: Glipizide* (Glipizide*) 5 Mg Tablet 10 MG ORAL BIDAC for Diabetes Mellitus, TAB Lisinopril* (Lisinopril*) 2.5 Mg Tablet 5 MG ORAL DAILY for Hypertension, TAB 0 Refills Metformin Hcl* (Metformin Hcl*) 850 Mg Tablet 850 MG ORAL TID for Diabetes Mellitus, TAB Pioglitazone Hcl* (Actos*) 45 Mg Tablet 45 MG ORAL DAILY for diabetes, TAB Discharge Condition Upon Discharge: critical Discharge Vital Signs Last Vital Signs Date Time Temp Pulse Resp B/P (MAP) Pulse Ox O2 Delivery O2 Flow Rate FiO2 02/04/20 09:01 148/80 02/04/20 08:00 95 02/04/20 08:00 97.7 22 96 02/04/20 07:38 Non-Rebreather 10.0 02/02/20 15:30 55 Discharge Disposition Patient was discharged to [facility] Discharge Diagnoses: (1) CVA (cerebral vascular accident) (2) COVID-19 (3) Respiratory distress (4) T2DM (type 2 diabetes mellitus) Discharge Instructions Discharge Instructions Follow up with: [facility] Neuro ICU Gonsalo Alatorre MD Feb 04, 2020 15:25
--- NOTE | 2020-02-04 15:54 | Diagnostic Imaging Report ---
ndication: Left-sided weakness Technique: IV administration nonionic contrast. Arterial phase spiral acquisitions obtained through the neck. Multiplanar and 3-D reconstructions were generated. Total dose length product 2447 mGycm. CTDIvol(s) 45, 4, 77, 32 mGy. Dose reduction achieved using automated exposure control Comparison: none Findings: The aortic arch is unremarkable. There is normal branching anatomy of the great neck vessels. Patent nonstenotic right brachiocephalic, common carotid artery. There is severe stenosis of 80+ percent involving the origin of the right internal carotid artery. The neural material is low in attenuation. Distal to this, the internal carotid artery is patent and nonstenotic. The vertebral arteries are codominant. The right vertebral artery is patent and nonstenotic, as is the distal proximal right subclavian artery. Patent nonstenotic left common carotid artery, and proximal internal carotid artery. Patent nonstenotic left proximal subclavian artery. There is suggestion of a kink in the left vertebral artery as it enters the C6 foramen. This may result in up to moderate stenosis. The remainder is patent and nonstenotic. Intracranial occlusive disease is described on separate CT brain report. The included lung apices demonstrate extensive dense consolidation. The bilateral parapharyngeal spaces are clear. No cervical mass or adenopathy. The sinuses are clear. The upper aerodigestive tract is unremarkable. The salivary glands are unremarkable. There is fairly extensive degenerative cervical and upper thoracic spondylosis. There is suggestion of significant spinal stenosis in the upper thoracic spine. Impression: Severe approximately 80% stenosis of the right internal carotid artery, as can there are to the normal caliber distal vessel. This is low in attenuation, suggesting soft plaque. However, given findings of multifocal intracranial occlusive disease including in the posterior vascular distribution and the absence of calcified atherosclerotic vascular disease, the possibility that this represents nonocclusive in situ thrombosis, particularly in the setting of known COVID-19 infection, should also be considered Slight kink of the left vertebral artery as it enters the C6 foramen, could result in mild to moderate stenosis Evidence of significant thoracic and cervical spondylosis and spinal stenosis Findings discussed by phone with Dr. Alatorre previously Mild stenosis: Less than 50% diameter Moderate stenosis: 50-69% diameter Severe stenosis: 70+% diameter All stenosis measurements are based on NASCET criteria, using normal distal vessel diameter as the denominator The CT scanner at [facility] is accredited by the [employer] and the scans are performed using protocols designed to limit radiation exposure to as low as reasonably achievable to attain images of sufficient resolution adequate for diagnostic evaluation.
[2020-02-04 16:00] VITALS: BP 119/59
--- NOTE | 2020-02-04 16:12 | Diagnostic Imaging Report ---
Indication: Left-sided weakness, aphasia Technique: Arterial phase spiral acquisitions obtained through the brain. Multiplanar and 3-D reconstructions were generated. Total dose length product 2447 mGycm. CTDIvol(s) 45, 4, 77, 32 mGy. Dose reduction achieved using automated exposure control Comparison: Noncontrast head CT dated 02/03/2020 Findings: There is origin occlusion of the right middle cerebral artery. The anterior cerebral arterial anatomy is somewhat unclear distally. Both A1 and proximal A2 segments appear unremarkable. However, a right pericallosal artery is not clearly demonstrated, and the cytotoxic edema appears to involve the distal anterior cerebral artery distribution on the right. Posterior circulation demonstrates absence of the distal left posterior cerebral artery. However, the rodriguez-white differentiation in this distribution appears preserved. There is cytotoxic edema involving most of the right parietal lobe, much of the posterior frontal lobe, and much of the superior temporal lobe. There is even more severe low-attenuation involving the right caudate head, which also appears swollen. This results in mass effect with obliteration of the its lateral sulci and attenuation of the frontal horn right lateral ventricle. There is no significant midline shift and the basilar cisterns are preserved. The rodriguez-white differentiation in the left distal posterior cerebral artery distribution is preserved. No definite evidence of acute hemorrhage Patent codominant distal vertebral arteries are noted. Both PICAs and AICAs appear to be patent. Both distal internal carotid arteries are patent without significant stenosis, and the left middle cerebral artery and branches and the left anterior cerebral artery and branches appear to be patent. The cerebral veins and dural sinuses are patent. No evidence of vascular aneurysm or malformation. Comparison compared to prior noncontrast CT, the cytotoxic edema and associated mass effect are new findings Impression: Evidence of occlusion, presumably acute, of the origin of the right middle cerebral artery. Suspect branch occlusion of the distal right anterior cerebral artery Evidence of large right middle cerebral artery territory infarct and distal right anterior cerebral artery territory infarct. Developing mass effect related to such manifested by attenuation of the ipsilateral sulci and lateral ventricle. Suspect occlusion of the main trunk of the distal left middle cerebral artery. No definite evidence of infarct in this territory, however. Images reviewed in person with Dr. Alatorre previously The CT scanner at [facility] is accredited by the [employer] and the scans are performed using protocols designed to limit radiation exposure to as low as reasonably achievable to attain images of sufficient resolution adequate for diagnostic evaluation.
[2020-02-04] MEDS ORDERED: NovoLOG Insulin Flexpen SUBQ SCH (16:30)
--- NOTE | 2020-02-04 16:36 | Neurology Progress Note ---
Interim History Interim History ROS Limited/Unobtainable: Yes Interim History 59 year old male who was admitted on Feb 02, 2020 at 10:56 for Shortness Of Breath ancovid today noted left hemiplegia per nurse in AM. Patient with R PEDRO and R MCA stroke in evolution, massive i requested a stat cta head neck, pt has LVO per review o imaging DW with dr blevins neuro ic[facility] for higher level of care transfer to [facility] Pt was given mannitol 100 gr before dc, maintain permissive hypertension Objective Physical Exam Last Vital Signs Date Time Temp Pulse Resp B/P (MAP) Pulse Ox O2 Delivery O2 Flow Rate FiO2 02/04/20 16:00 100 02/04/20 16:00 97.8 20 119/59 (79) 96 02/04/20 07:38 Non-Rebreather 10.0 02/02/20 15:30 55 Laboratory Tests Test 02/04/20 04:00 White Blood Count 18.7 K/UL (4.8-10.8) #H Red Blood Count 4.08 M/UL (4.70-6.10) L Hemoglobin 13.9 G/DL (14.2-18.0) L Hematocrit 37.7 % (42.0-52.0) L Mean Corpuscular Volume 92 FL (80-99) Mean Corpuscular Hemoglobin 34.0 PG (27.0-31.0) H Mean Corpuscular Hemoglobin Concent 36.7 G/DL (32.0-36.0) H Red Cell Distribution Width 12.6 % (11.6-14.8) Platelet Count 446 K/UL (150-450) Mean Platelet Volume 5.0 FL (6.5-10.1) L Neutrophils (%) (Auto) % (45.0-75.0) Lymphocytes (%) (Auto) % (20.0-45.0) Monocytes (%) (Auto) % (1.0-10.0) Eosinophils (%) (Auto) % (0.0-3.0) Basophils (%) (Auto) % (0.0-2.0) Differential Total Cells Counted 100 Neutrophils % (Manual) 80 % (45-75) H Lymphocytes % (Manual) 12 % (20-45) L Monocytes % (Manual) 8 % (1-10) Eosinophils % (Manual) 0 % (0-3) Basophils % (Manual) 0 % (0-2) Band Neutrophils 0 % (0-8) Platelet Estimate Increased H Platelet Morphology Normal Red Blood Cell Morphology Normal Sodium Level 138 MMOL/L (136-145) Potassium Level 3.9 MMOL/L (3.5-5.1) Chloride Level 103 MMOL/L (98-107) Carbon Dioxide Level 24 MMOL/L (21-32) Anion Gap 11 mmol/L (5-15) Blood Urea Nitrogen 11 mg/dL (7-18) Creatinine 0.9 MG/DL (0.55-1.30) Estimat Glomerular Filtration Rate > 60 mL/min (>60) Glucose Level 195 MG/DL (74-106) H Hemoglobin A1c 6.9 % (4.3-6.0) H Calcium Level 8.7 MG/DL (8.5-10.1) Total Bilirubin 0.4 MG/DL (0.2-1.0) Direct Bilirubin 0.2 MG/DL (0.0-0.3) Aspartate Amino Transf (AST/SGOT) 39 U/L (15-37) H Alanine Aminotransferase (ALT/SGPT) 40 U/L (12-78) Alkaline Phosphatase 43 U/L (46-116) L Total Protein 7.0 G/DL (6.4-8.2) Albumin 2.5 G/DL (3.4-5.0) L Globulin 4.5 g/dL Albumin/Globulin Ratio 0.6 (1.0-2.7) L Neurologic Exam Objective slurred speech left hemiparesis nihss of 10 Impression/Recommendations Problems: (1) Respiratory distress (2) COVID-19 (3) CVA (cerebral vascular accident) (4) T2DM (type 2 diabetes mellitus) Status: unchanged Diagnostic Impression R MCA stroke in evolution Transfer to higher level urgently DW with dr blevins [facility] mannitol 100 gr given Hunter Pina MD Feb 04, 2020 16:36
--- NOTE | 2020-02-04 17:55 | Cardiology Report ---
APPROVED REPORT EKG Measurement Heart [id number] <Conclusion> Sinus tachycardia Otherwise normal ECG
== END 2020-02-04 19:30 | disposition critical access hospital, planned readmission (94) | DRG 177 ==
LOC: EMR 10:17 → 2E 10:56 → EDBEDREQ 14:33 → 2E 15:14
DX: U07.1 COVID-19 (principal); J12.89 Other viral pneumonia; J96.91 Respiratory failure, unspecified with hypoxia; I63.321 Cerebral infarction due to thrombosis of right anterior cerebral artery; G81.94 Hemiplegia, unspecified affecting left nondominant side; D72.829 Elevated white blood cell count, unspecified; T38.0X5A Adverse effect of glucocorticoids and synthetic analogues, initial encounter; R13.10 Dysphagia, unspecified; E11.9 Type 2 diabetes mellitus without complications; Z79.84 Long term (current) use of oral hypoglycemic drugs; I10 Essential (primary) hypertension
CPT/HCPCS: 36415; 70450; 70496; 70498; 71045; 80053; 81003; 82248; 82728; 82803; 82962; 83036; 83605; 83615; 83690; 83735; 83880; 84484; 85007; 85025; 85379; 85610; 85730; 86140; 87040; 93005; 96361; 96365; 96367; 96375; 99291; J1815; J3490; U0002